=== PATIENT | female | born 1995 | race Caucasian/White ===

== ENCOUNTER 2017-04-01 10:39 | Emergency (ER) | payer BC ==
[~2017-04-01] VITALS: Ht 170.2 cm; Wt 64.5 kg
[2017-04-01 10:45] VITALS: Ht 170.2 cm; Wt 64.5 kg
[2017-04-01] MEDS ORDERED: HYDROCODONE/APAP (5/325) TAB PO ONE (11:30)
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
[2017-04-01] MEDS ORDERED: CYCL-319 PO (13:16)
[2017-04-01] MEDS ORDERED: NEOM1PAC TP (13:16)
[2017-04-01] MEDS ORDERED: TRAM50TA2 PO (13:16)
[2017-04-01] MEDS ORDERED: NAPR-260 PO (13:16)
== END 2017-04-01 13:20 | disposition home or self-care (01) ==
LOC: FTE 10:39
DX: S79.911A Unspecified injury of right hip, initial encounter (principal); S79.912A Unspecified injury of left hip, initial encounter; S39.92XA Unspecified injury of lower back, initial encounter; V49.40XA Driver injured in collision with unspecified motor vehicles in traffic accident, initial encounter
CPT/HCPCS: 72100; 72170